=== PATIENT | female | born 1990 | race Two or more races ===

== ENCOUNTER 2016-06-17 12:07 | Inpatient (IN) | payer MEDICAID ==
[~2016-06-17] VITALS: Ht 154.9 cm; Wt 87.2 kg
[~2016-06-17 12:07] MED LIST: FERR27TA PO; PREN1TAB49 PO
[2016-06-17] MEDS ORDERED: OXYTOCIN 30 UNITS/LR 500 ML IV SCH ×3 (13:00→14:15)
[2016-06-17] MEDS ORDERED: LIDOCAINE 1% (MPF) 30 ML INJ INJ PRN (13:00)
[2016-06-17] MEDS ORDERED: IBUPROFEN 600 MG TAB PO PRN (13:00)
[2016-06-17] MEDS ORDERED: CARBOPROST 250 MCG INJ IM PRN (13:00)
[2016-06-17] MEDS ORDERED: MISOPROSTOL 200 MCG TAB PR PRN (13:00)
[2016-06-17] MEDS ORDERED: METHYLERGONOVINE 0.2 MG INJ IM PRN (13:00)
[2016-06-17] MEDS ORDERED: BUTORPHANOL 2 MG INJ IV PRN (13:00)
[2016-06-17] MEDS ORDERED: OXYTOCIN 30 UNITS/LR 500 ML IV PRN (13:00)
[2016-06-17 13:43] VITALS: Ht 154.9 cm; Wt 87.2 kg
[2016-06-17 13:44] LABS: ADD SCAN DIFF NO
[2016-06-17 13:46] LABS: BASOPHILS % 0.2 % (0.0-2.0); EOSINOPHILS # 0.1 10^3/ul (0.0-0.5); EOSINOPHILS % 0.8 % (0.0-7.0); HEMATOCRIT 37.9 % (37.0-47.0); HEMOGLOBIN 12.9 g/dl (12.0-16.0); LYMPHOCYTES # 1.3 10^3/ul (0.8-2.9); LYMPHOCYTES % 13.9 % (15.0-51.0); MEAN CORPUSCULAR HEMOGLOBIN 32.3 pg (29.0-33.0); MEAN CORPUSCULAR VOLUME 94.8 fl (82.0-101.0); MEAN PLATELET VOLUME 12.2 fl (7.4-10.4); MONOCYTE # 0.7 10^3/ul (0.3-0.9); MONOCYTES % 7.7 % (0.0-11.0); NEUTROPHIL # 7.1 10^3/ul (1.6-7.5); NEUTROPHILS % 76.5 % (39.0-77.0); PLATELET COUNT 207 10^3/UL (140-415); RED CELL DISTRIBUTION WIDTH 14.3 % (11.5-14.5); WHITE BLOOD COUNT 9.3 10^3/ul (4.8-10.8)
[2016-06-17 13:47] VITALS: BP 124/76; PULSE 94; RESP 20
[2016-06-17] MEDS ORDERED: LACTATED RINGER'S 1,000 ML IV PRN (14:00)
[2016-06-17 14:02] LABS: INR 0.88; PROTIME 11.9 Sec (12.2-14.2); PT RATIO 0.9
[2016-06-17 14:03] LABS: PARTIAL THROMBOPLASTIN TIME 27.3 Sec (25.0-35.0)
[2016-06-17] MEDS: LACTATED RINGER'S 1,000 ML IV SCH ×2 (14:16→17:22)
[2016-06-17 15:13] LABS: ALBUMIN 3.4 g/dl (3.3-4.9)
[2016-06-17 15:14] LABS: POTASSIUM 3.6 mmol/L (3.5-5.1)
[2016-06-17 15:16] LABS: ALBUMIN/GLOBULIN RATIO 0.87; BILIRUBIN,INDIRECT 0.5 mg/dl (0-1.1); BILIRUBIN,TOTAL 0.5 mg/dl (0.2-1.3); CREATININE 0.51 mg/dl (0.44-1.00); TOTAL PROTEIN 7.3 g/dl (6.1-8.1)
[2016-06-17 15:17] LABS: CALCIUM 9.1 mg/dl (8.4-10.2); URIC ACID 5.2 mg/dl (3.1-7.9)
[2016-06-17 15:23] LABS: ADD UMIC NO; URINE BILIRUBIN (Dip) NEGATIVE (NEGATIVE); URINE BLOOD (Dip) NEGATIVE (NEGATIVE); URINE COLOR LT. YELLOW (YELLOW); URINE GLUCOSE (Dip) NEGATIVE (NEGATIVE); URINE KETONES (Dip) NEGATIVE (NEGATIVE); URINE LEUKOCYTE ESTERASE (Dip) NEGATIVE (NEGATIVE); URINE NITRITE (Dip) NEGATIVE (NEGATIVE); URINE TOTAL PROTEIN (Dip) NEGATIVE (NEGATIVE); URINE UROBILINOGEN (Dip) 0.2 E.U./dL (0.1-1.0)
[2016-06-17] MEDS ORDERED: ONDANSETRON 4 MG INJ IV PRN ×2 (16:30→21:30)
[2016-06-17] MEDS ORDERED: HYDROmorphONE 1 MG/ML SYG IV PRN ×2 (16:30)
[2016-06-17] MEDS ORDERED: DIPHENHYDRAMINE 50 MG INJ IV PRN (16:30)
[2016-06-17] MEDS ORDERED: KETOROLAC 30 MG INJ IV PRN (16:30)
[2016-06-17] MEDS ORDERED: FENTAnyl 2MCG/ML-ROPIV 0.2% 100 ML BAG EPI SCH (16:30)
[2016-06-17] MEDS ORDERED: NALOXONE (0.4 MG/ML) INJ IV PRN (16:30)
--- NOTE | 2016-06-17 19:27 | LDN ---
Date/Time of Note Date/Time of Note DATE: 06/17/16 TIME: 19:23 Delivery Summary Normal spontaneous vaginal delivery of a baby boy from OA position shoulders delivered without any difficulties rest of the baby's body follow cord clamped after stopped pulsation placenta spontaneous expulsion inspected complete blood loss 200 cc patient sustained small left paraurethral laceration repaired with 4 -0 chromic catgut vaginal inspection no other laceration noted Weeks of Gestation 39 weeks 5 days Placenta Delivered: Spontaneously Meconium: none Episiotomy: No Laceration repair: Left paraurethral laceration repaired with 4-0 chromic catgut Anesthesia type: Epidural Estimated blood loss: 200 Sponge & Needle done & correct: Yes All needle counts correct: Yes Any foreign bodies felt in the: No Problems: Infant Delivery Information Sex Sex: male Apgars 1 Minute: 9 5 Minute: 9 Suctioning Nose & mouth suctioned at mina: Yes Delee suction performed: No Umbilical Cord Umbilical cord with: 3 Vessels Cord presentations: no nuchal cord Cord Blood was obtained: Yes GRACIELA KAPOOR MD Jun 17, 2016 19:27
--- NOTE | 2016-06-17 19:31 | HP ---
Date/Time of Note Date/Time of Note DATE: 06/17/16 TIME: 19:27 OB - History Hx of Present Free Text/Dictation 24 years old female 2 para 1 EDC June 19, 2016 admitted to [facility] at 39 weeks and 5 days in active labor on admission pelvic examination cervix 4 cm dilated 90% effaced vertex at -2 station patient admitted to L&D for expectant management for delivery Estimated Due Date: Jun 17, 2016 : 2 Para: 1 Care: Good Care Ultrasounds: Normal mid trimester US Obstetrical Complications: None Medical Complications: None Past Family/Social History * Past Medical, Surgical, Family and Obstetric Histories reviewed from chart. RPR/VDRL: Negative GBS Status: Negative HBsAG: Negative OB Admission Exam Vital Signs Vital Signs Vital Signs Date Time Temp Pulse Resp B/P Pulse Ox O2 Delivery O2 Flow Rate FiO2 06/17/16 13:47 98.3 94 20 124/76 Room Air Physical Exam HEENT: WNL Heart: Rhythm Normal Lungs: Clear, Equal Abdomen: WNL Extremities: Normal Reflexes: Normal Cervical Dilatation: 4cm Effacement: Other (90%) Station: -1 Membranes: Intact Amniotic Fluid: Clear Decelerations: No Decelerations Varibility: Marked Contractions on Admission: < 5 Minutes Apart Intensity: Moderate Last 72 hours Lab Results CBC & BMP 06/17/16 13:10 Liver Function Test 06/17/16 13:10 Alanine Aminotransferase (ALT/SGPT) 28 Albumin 3.4 Alkaline Phosphatase 173 H Aspartate Amino Transf (AST/SGOT) 22 Direct Bilirubin 0.00 Total Protein 7.3 OB Assessment/Plan Reason for admission: active labor Plan: Expectant Management GRACIELA KAPOOR MD Jun 17, 2016 19:31
[2016-06-17 21:15] VITALS: BP 119/73; PULSE 92; RESP 20
[2016-06-17] MEDS: OXYTOCIN 30 UNITS/LR 500 ML IV SCH ×2 (21:19→21:51)
[2016-06-17] MEDS ORDERED: ACETAMINOPHEN 325 MG TAB PO PRN (21:30)
[2016-06-17] MEDS ORDERED: DIBUCAINE 1% 30 GM OINT PR PRN (21:30)
[2016-06-17] MEDS ORDERED: OXYCODONE/ASPIRIN (4.88/325) TAB PO PRN ×2 (21:30)
[2016-06-17] MEDS ORDERED: ACETAMINOPHEN/CODEINE #3 TAB PO PRN ×2 (21:30)
[2016-06-17] MEDS: LANOLIN 7 GM TUBE TOP PRN (21:54)
[2016-06-17] MEDS: BENZOCAINE 20% 56 ML SPRAY TOP PRN (21:54)
[2016-06-17] MEDS: WITCH HAZEL/GLYCERIN PAD PR PRN (21:54)
[2016-06-17] MEDS: IBUPROFEN 600 MG TAB PO SCH (23:34)
[2016-06-18] VITALS: BP_SYST 115; PULSE 78; RESP 19
[2016-06-18] MEDS: LACTATED RINGER'S 1,000 ML IV SCH (01:32)
[2016-06-18 04:00] VITALS: BP 107/66; PULSE 83; RESP 19
[2016-06-18] MEDS: IBUPROFEN 600 MG TAB PO SCH ×4 (05:40→23:15)
[2016-06-18 07:36] LABS: ADD SCAN DIFF NO
[2016-06-18 07:38] LABS: BASOPHILS % 0.2 % (0.0-2.0); EOSINOPHILS # 0.1 10^3/ul (0.0-0.5); HEMATOCRIT 36.4 % (37.0-47.0); HEMOGLOBIN 12.1 g/dl (12.0-16.0); LYMPHOCYTES # 1.9 10^3/ul (0.8-2.9); MEAN CORPUSCULAR HEMOGLOBIN 31.6 pg (29.0-33.0); MEAN CORPUSCULAR HGB CONC 33.2 g/dl (32.0-37.0); MEAN PLATELET VOLUME 12.2 fl (7.4-10.4); MONOCYTE # 0.8 10^3/ul (0.3-0.9); MONOCYTES % 6.4 % (0.0-11.0); NEUTROPHIL # 9.6 10^3/ul (1.6-7.5); NEUTROPHILS % 76.4 % (39.0-77.0); PLATELET COUNT 180 10^3/UL (140-415); RED BLOOD COUNT 3.83 10^6/ul (4.20-5.40); RED CELL DISTRIBUTION WIDTH 14.3 % (11.5-14.5); WHITE BLOOD COUNT 12.6 10^3/ul (4.8-10.8)
[2016-06-18 07:50] VITALS: BP 118/78; PULSE 93; RESP 16
[2016-06-18] MEDS: SENNA/DOCUSATE NA (8.6MG/50MG) TAB PO SCH ×2 (09:29→21:06)
--- NOTE | 2016-06-18 09:59 | PN ---
Date/Time of Note Date/Time of Note DATE: 06/18/16 TIME: 09:58 OB Subjective Subjective Subjective day 1 Afebrile abdomen soft uterus firm lochia normal extremity normal ambulation recommended Laboratory Tests Test 06/17/16 13:10 06/17/16 14:05 06/18/16 06:50 White Blood Count 9.310^3/ul 12.610^3/ul Red Blood Count 4.0010^6/ul 3.8310^6/ul Hemoglobin 12.9g/dl 12.1g/dl Hematocrit 37.9% 36.4% Mean Corpuscular Volume 94.8fl 95.0fl Mean Corpuscular Hemoglobin 32.3pg 31.6pg Mean Corpuscular Hemoglobin Concent 34.0g/dl 33.2g/dl Red Cell Distribution Width 14.3% 14.3% Platelet Count 61818^3/UL 97088^3/UL Mean Platelet Volume 12.2fl 12.2fl Neutrophils % 76.5% 76.4% Lymphocytes % 13.9% 15.0% Monocytes % 7.7% 6.4% Eosinophils % 0.8% 1.0% Basophils % 0.2% 0.2% Nucleated Red Blood Cells % 0.0/100WBC 0.0/100WBC Neutrophils # 7.110^3/ul 9.610^3/ul Lymphocytes # 1.310^3/ul 1.910^3/ul Monocytes # 0.710^3/ul 0.810^3/ul Eosinophils # 0.110^3/ul 0.110^3/ul Basophils # 0.010^3/ul 0.010^3/ul Nucleated Red Blood Cells # 0.010^3/ul 0.010^3/ul Prothrombin Time 11.9Sec Prothrombin Time Ratio 0.9 INR International Normalized Ratio 0.88 Activated Partial Thromboplast Time 27.3Sec Sodium Level 137mmol/L Potassium Level 3.6mmol/L Chloride Level 105mmol/L Carbon Dioxide Level 20mmol/L Anion Gap 16 Blood Urea Nitrogen 9mg/dl Creatinine 0.51mg/dl Glucose Level 84mg/dl Uric Acid 5.2mg/dl Calcium Level 9.1mg/dl Total Bilirubin 0.5mg/dl Direct Bilirubin 0.00mg/dl Indirect Bilirubin 0.5mg/dl Aspartate Amino Transf (AST/SGOT) 22IU/L Alanine Aminotransferase (ALT/SGPT) 28IU/L Alkaline Phosphatase 173IU/L Total Protein 7.3g/dl Albumin 3.4g/dl Globulin 3.90g/dl Albumin/Globulin Ratio 0.87 Rapid Plasma Reagin NONREACTIVE Hepatitis B Surface Antigen NEGATIVE Urine Color LT. YELLOW Urine Clarity SLIGHTLY CLOUDY Urine pH 7.0 Urine Specific [place] 1.015 Urine Ketones NEGATIVE Urine Nitrite NEGATIVE Urine Bilirubin NEGATIVE Urine Urobilinogen 0.2 E.U./dL Urine Leukocyte Esterase NEGATIVE Urine Hemoglobin NEGATIVE Urine Glucose NEGATIVE% Urine Total Protein NEGATIVE Current Medications Medications (Trade) Dose Ordered Sig/Ji Route PRN Reason Start Time Stop Time Status Last Admin Dose Admin Lactated Ringer's (Lr) 1,000 ml @ 125 mls/hr Q8H IV 06/17/16 12:52 06/18/16 09:15 DC 06/18/16 01:32 Butorphanol Tartrate (Stadol) 2 mg Q2H PRN IV PAIN 06/17/16 13:00 06/17/16 21:26 DC Lidocaine 30 ml 30 ml ONCE PRN INJ EPISIOTOMY/TEARING 06/17/16 13:00 06/17/16 21:26 DC Oxytocin/Lactated Ringer's 500 ml @ 125 mls/hr ONCE -MAY REPEAT X1 IV 06/17/16 13:00 06/17/16 21:26 DC Oxytocin/Lactated Ringer's 500 ml @ 125 mls/hr ONCE IV 06/17/16 13:00 06/17/16 21:26 DC Ibuprofen 600 mg 600 mg ONCE PRN PO Mild Pain (Pain Score 1-3) 06/17/16 13:00 06/17/16 21:26 DC Lactated Ringer's 1,000 ml @ 2,000 mls/hr Q30M PRN IV PRE-EPIDURAL BOLUS 06/17/16 14:00 06/17/16 21:26 DC 06/17/16 16:41 Oxytocin/Lactated Ringer's 500 ml @ 0 mls/hr ONCE PRN IV For Hemorrhage Management 06/17/16 13:00 06/17/16 21:26 DC Methylergonovine Maleate (Methergine) 0.2 mg ONCE PRN IM VAGINAL BLEEDING 06/17/16 13:00 06/17/16 21:25 DC Carboprost Tromethamine (Hemabate) 250 mcg ONCE PRN IM VAGINAL BLEEDING 06/17/16 13:00 06/17/16 21:25 DC Misoprostol 1000 mcg 1,000 mcg ONCE PRN CO VAGINAL BLEEDING 06/17/16 13:00 06/17/16 21:26 DC Oxytocin/Lactated Ringer's 500 ml @ 0 mls/hr TITRATE IV 06/17/16 14:15 06/17/16 21:25 DC 06/17/16 14:43 Naloxone HCl (Narcan) 0.1 mg Q2M PRN IV FOR RESP RATE 8 OR LESS 06/17/16 16:30 06/17/16 21:25 DC Ketorolac Tromethamine (Toradol) 30 mg Q6H PRN IV PAIN 06/17/16 16:30 06/17/16 21:25 DC Hydromorphone HCl (Dilaudid) 0.2 mg Q3H PRN IV PAIN LEVEL 1-5 06/17/16 16:30 06/17/16 21:25 DC Hydromorphone HCl (Dilaudid) 0.4 mg Q3H PRN IV PAIN LEVEL 6-10 06/17/16 16:30 06/17/16 21:25 DC Diphenhydramine HCl (Benadryl) 25 mg Q6H PRN IV ITCHING 06/17/16 16:30 06/17/16 21:25 DC Ondansetron HCl (Zofran Inj) 4 mg Q6H PRN IV NAUSEA AND/OR VOMITING 06/17/16 16:30 06/17/16 21:25 DC Fentanyl/ Ropivacaine 100 ml 100 ml EPIDURAL INFUSION EPI 06/17/16 16:30 06/17/16 21:25 DC Oxytocin/Lactated Ringer's 500 ml @ 125 mls/hr Q4H IV 06/17/16 21:19 06/18/16 05:18 DC 06/17/16 21:51 Ibuprofen (Motrin) 600 mg Q6 PO 06/18/16 00:00 06/18/16 05:40 Acetaminophen (Tylenol Tab) 650 mg Q4H PRN PO PAIN LEVEL 1-5 06/17/16 21:30 Acetaminophen/ Codeine Phosphate (Tylenol No.3) 1 tab Q4H PRN PO PAIN LEVEL 1-5 06/17/16 21:30 Acetaminophen/ Codeine Phosphate (Tylenol No.3) 2 tab Q4H PRN PO PAIN LEVEL 6-10 06/17/16 21:30 Oxycodone/Aspirin (Percodan) 1 tab Q3H PRN PO PAIN LEVEL 1-5 06/17/16 21:30 Oxycodone/Aspirin (Percodan) 2 tab Q3H PRN PO PAIN LEVEL 6-10 06/17/16 21:30 Ondansetron HCl (Zofran Inj) 4 mg Q6H PRN IV NAUSEA AND/OR VOMITING 06/17/16 21:30 Senna/Docusate Sodium (Senokot-S) 1 tab BID PO 06/18/16 09:00 06/18/16 09:29 Witch Inez/ Glycerin (Tucks Pads) 1 pad BEDSIDE MEDICATION PRN CO HEMORRHOID/EPISIOTMY PAIN 06/17/16 21:30 06/17/16 21:54 Benzocaine (Dermoplast [place]) 1 spray BEDSIDE MEDICATION PRN TOP HEMORRHOID/EPISIOTMY PAIN 06/17/16 21:30 06/17/16 21:54 Dibucaine (Nupercainal) 1 applic BEDSIDE MEDICATION PRN CO HEMORRHOID/EPISIOTMY PAIN 06/17/16 21:30 Lanolin (Ucn-Q-Okykbf) 1 applic BEDSIDE MEDICATION PRN TOP BEDSIDE FOR ASHLEY TO NIPPLES 06/17/16 21:30 06/17/16 21:54 Measles/Mumps/ Rubella Vaccine Live (Mmr Ii Vaccine) 0.5 ml ONCE ONCE SC* 06/19/16 09:00 06/19/16 09:01 GRACIELA KAPOOR MD Jun 18, 2016 09:59
[2016-06-18 16:23] VITALS: BP 120/83; PULSE 88; RESP 18
[2016-06-18 19:46] VITALS: BP 108/64; PULSE 95; RESP 18
[2016-06-19 04:05] VITALS: BP 132/74; RESP 18
[2016-06-19] MEDS: IBUPROFEN 600 MG TAB PO SCH ×2 (05:25→11:29)
[2016-06-19] MEDS: BENZOCAINE 20% 56 ML SPRAY TOP PRN (07:30)
[2016-06-19] MEDS: WITCH HAZEL/GLYCERIN PAD PR PRN (07:31)
[2016-06-19] MEDS: LANOLIN 7 GM TUBE TOP PRN (07:31)
[2016-06-19 07:50] VITALS: BP 120/80; PULSE 83; RESP 19
[2016-06-19] MEDS: SENNA/DOCUSATE NA (8.6MG/50MG) TAB PO SCH (08:56)
[2016-06-19] MEDS ORDERED: MEASLES,MUMPS,RUBELLA VACCINE INJ SC* ONE (09:00)
[2016-06-19] MEDS ORDERED: DIPHTH/TET/ACEL PERTUSS (ADULT) 0.5 ML VIAL IM* ONE (09:00)
--- NOTE | 2016-06-19 10:07 | PD.PPDC ---
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
--- NOTE | 2016-06-19 10:10 | DS ---
Date/Time of Note Date/Time of Note DATE: 06/19/16 TIME: 10:07 Obstetrical Discharge Record Final Diagnosis Final Diagnosis: Term delivered Vaginal Delivery Obstetrical Delivery: Spontaneous, Laceration, Repaired Complications Augmentation: Yes Induction: Yes Condition on Discharge Physical Assessment Last Vitals: T=98.7 132/74 Fundus firm. Lochia moderate. Ext NT, no edema. Hgb 12.1 Voiding: Yes Bowel Movement: No Breast: Soft, non-tender Fundus: Firm Calf Tenderness: No Patient Condition: Good DEVANTE DING MD Jun 19, 2016 10:10
== END 2016-06-19 15:44 | disposition home or self-care (01) | DRG 775 ==
LOC: OBT 12:07 → L-D 12:10 → UNDOADMIN 12:10 → L-D 12:11 → PP1 21:12
PROVIDERS: ADMIT Obstetrics & Gynecology; ATTEND Obstetrics & Gynecology
PROC: 10E0XZZ Delivery of Products of Conception, External Approach (ICD-10-PCS; principal; 2016-06-17)
PROC: 0UQMXZZ Repair Vulva, External Approach (ICD-10-PCS; 2016-06-17)
DX: O71.82 Other specified trauma to perineum and vulva (principal); Z37.0 Single live birth; Z3A.39 39 weeks gestation of pregnancy
CPT/HCPCS: 62319; 80053; 81003; 84560; 85025; 85610; 85730; 86592; 86900; 86901; 87340; 90715; J2590; J3010; J7120

== ENCOUNTER 2017-04-23 13:27 | Emergency (ER) | END 2017-04-23 18:05 | disposition home or self-care (01) ==

== ENCOUNTER 2018-07-13 20:05 | Emergency (ER) | payer SELFPAY ==
[~2018-07-13] VITALS: Ht 157.5 cm; Wt 76.9 kg
[2018-07-13 20:59] VITALS: BP 122/79; PULSE 77; RESP 18; Ht 157.5 cm; Wt 76.9 kg
== END 2018-07-14 00:25 | disposition left against medical advice (07) ==
LOC: FTE 20:05
DX: Z53.21 Procedure and treatment not carried out due to patient leaving prior to being seen by health care provider (principal)